=== PATIENT | male | born 1980 | race Caucasian/White ===

== ENCOUNTER 2016-10-03 12:28 | Emergency (ER) | payer OTHER ==
[~2016-10-03] VITALS: Ht 188 cm; Wt 72.6 kg
[2016-10-03 12:36] VITALS: BP 143/81; PULSE 88; RESP 16; TEMP 98.2; O2SAT 99
[2016-10-03] MEDS ORDERED: cefTRIAXone 1 GM in D5W 50 ML IV ONE (13:00)
[2016-10-03 13:26] LABS: BASOPHILS # (AUTO) 0.1 K/uL (0.0-0.2); BASOPHILS % (AUTO) 1.1 % (0.0-2.0); EOSINOPHILS # (AUTO) 0.2 K/uL (0.0-0.4); EOSINOPHILS % (AUTO) 1.5 % (0.0-4.0); HEMATOCRIT 38.6 % (36-54); HEMOGLOBIN 13.4 g/dL (14.0-18.0); LYMPHOCYTES # (AUTO) 3.2 K/uL (1.0-5.5); LYMPHOCYTES % (AUTO) 23.7 % (20.5-51.5); MEAN CORPUSCULAR HEMOGLOBIN 31 pg (27-31); MEAN CORPUSCULAR HGB CONC 35 % (32-36); MEAN CORPUSCULAR VOLUME 90 fL (79.0-98.0); MONOCYTES # (AUTO) 1.1 K/uL (0.0-1.0); NEUTROPHILS # (AUTO) 8.7 K/uL (1.8-7.7); NEUTROPHILS % (AUTO) 65.7 % (40.0-70.0); PLATELET COUNT (AUTO) 327 K/uL (130-430); RED CELL DISTRIBUTION WIDTH 11.8 % (9.0-15.0); WHITE BLOOD COUNT (AUTO) 13.3 K/uL (4.8-10.8)
[2016-10-03] MEDS ORDERED: cefTRIAXone 1 GM VIAL ONE (13:29)
[2016-10-03 13:36] LABS: CALCIUM 8.8 mg/dL (8.4-11.0); CREATININE 0.87 mg/dL (0.55-1.30); POTASSIUM 4.1 mmol/L (3.5-5.1)
[2016-10-03 13:40] LABS: ALBUMIN 3.4 g/dL (3.4-4.8); TOTAL BILIRUBIN 0.3 mg/dL (0.0-1.0); TOTAL PROTEIN, SERUM 7.4 g/dL (6.4-8.3)
[2016-10-03] MEDS ORDERED: SULFAMETHOXAZOLE/TRIMETHOPR DS 1 TABLET PO ONE (14:00)
[2016-10-03] MEDS ORDERED: CEPHALEXIN 500 MG CAPSULE PO ONE (14:00)
[2016-10-03 14:08] VITALS: BP 143/81; PULSE 88; RESP 16; TEMP 98.2; O2SAT 99
== END 2016-10-03 14:08 | disposition home or self-care (01) ==
LOC: SED 12:28
DX: L03.114 Cellulitis of left upper limb (principal); L03.113 Cellulitis of right upper limb
CPT/HCPCS: 36415; 80053; 83605; 85025; 87040; 99284; J0696; J7060